=== PATIENT | male | born 1970 | race Two or more races ===

== ENCOUNTER 2020-08-14 08:23 | Outpatient (REF) | payer OTHER, SELFPAY ==
[2020-08-14 09:35] LABS: MANUAL DIFF FLAG NO
[2020-08-14 09:46] LABS: Basophils Absolute Auto 0.1 X10*3/uL (0.0-0.2); Basophils Percent Auto 0.9 % (0-2); Eosinophils Absolute Auto 0.4 X10*3/uL (0.0-0.4); Eosinophils Percent Auto 6.6 % (0-4); Glucose Urine UA NEG (NEG); Imm Gran Abs Auto 0.04 X10*3/uL (0.00-0.03); Imm Gran Pct Auto 0.7 % (0.0-0.4); Leukocyte Esterase Urine NEG (NEG); Lymphocytes Absolute Auto 1.4 X10*3/uL (1.2-4.9); Lymphocytes Percent Auto 24.7 % (20-40); Mean Corpuscular HGB Conc 34.1 g/dl (31.0-36.0); Mean Corpuscular Hemoglobin 29.1 pg (27.0-33.0); Mean Corpuscular Volume 85.4 fL (80-98); Mean Platelet Volume 10.3 fL (9.4-12.4); Monocytes Absolute Auto 0.5 X10*3/uL (0.1-1.2); Monocytes Percent Auto 9.3 % (2-11); Neutrophils Absolute Auto 3.2 X10*3/uL (2.0-8.3); Neutrophils Percent Auto 57.8 % (45-73); Nitrite Urine NEG (NEG); Platelet Count 215 X10*3/uL (160-400); Red Blood Count 5.15 X10*6/uL (4.60-5.80); Red Cell Distribution Width 12.7 % (11.0-16.0); Specific Gravity - Urine 1.025 (1.005-1.025); Urine Blood NEG (NEG); Urine Ketones NEG (NEG); Urine Protein NEG (NEG-TRACE); White Blood Count 5.6 X10*3/uL (4.8-10.8)
[2020-08-14 09:47] LABS: Appearance Urine CLEAR; Color Urine YELLOW
[2020-08-14 10:09] LABS: Alanine Aminotransferase 17 U/L (0-40); Albumin Level 4.7 g/dL (3.5-5.0); Alkaline Phosphatase 66 U/L (39-117); Anion Gap 14 (12-20); Aspartate Amino Transferase 16 U/L (5-37); Bilirubin Total 0.4 mg/dL (0.0-1.0); Blood Urea Nitrogen 23 mg/dL (9-16); Calcium 9.5 mg/dL (8.4-10.2); Carbon Dioxide 26 mmol/L (22-29); Chloride 105 mmol/L (96-108); Cholesterol 195 mg/dL; Estimated Glomerular Filt Rate > 60; Glucose Fasting 103 mg/dL (60-99); HDL Cholesterol 55 mg/dL; LDL Cholesterol Calculated 130 mg/dl; Potassium 4.9 mmol/L (3.3-5.1); Sodium 140 mmol/L (135-145); Total Protein 7.1 g/dL (6.5-8.0); Triglycerides 50 mg/dL
[2020-08-14 10:25] LABS: TSH reflex Free T4 0.46 uIU/mL (0.32-4.0)
[2020-08-14 10:57] LABS: Prostate Specific Antigen Scr 0.27 ng/mL (<0.05-4.0)
== END 2020-08-14 08:24 | disposition home or self-care (01) ==
LOC: HO.LAB 08:23
PROVIDERS: PCP Internal Medicine; Visit Provider Internal Medicine
DX: Z00.00 Encounter for general adult medical examination without abnormal findings (principal); Z12.5 Encounter for screening for malignant neoplasm of prostate; I10 Essential (primary) hypertension; L30.9 Dermatitis, unspecified; F17.200 Nicotine dependence, unspecified, uncomplicated; E66.9 Obesity, unspecified
CPT/HCPCS: 36415; 80053; 80061; 81003; 84153; 84443; 85025

== ENCOUNTER → 2020-08-19 09:28 | Outpatient (BNVA) | payer OTHER, SELFPAY | PROVIDERS: Visit Provider Nurse Practitioner ==

== ENCOUNTER 2022-05-14 11:34 | Emergency (ER) | payer BC, OTHER, SELFPAY ==
[2022-05-14 11:38] VITALS: BP 178/99; PULSE 76; RESP 18; TEMP 36.7; O2SAT 99; BMI 29.0
--- NOTE | 2022-05-14 11:43 | PC.NURSE ---
52 y/o M ROSE mcmahanye to L eye, educated on warm compresses and PO abx, given referral for opthamologist.
--- NOTE | 2022-05-14 11:43 | ED.GENADULT ---
HPI - General Adult General Chief complaint: Eye Problems Stated complaint: Swollen eye Time Seen by Provider: 05/14/22 11:42 Source: patient Mode of arrival: ambulatory Limitations: no limitations History of Present Illness HPI narrative: 33 yold male presents to the ED for left eye painful mass on left upper eyelid. Patient states this has been occurring for the past three weeks. patient denies any recent eye trauma, fever, chills, headache, eye pain, eye redness, or eye discharge Related Data Previous Rx's Medication Instructions Recorded lidocaine 5 % topical ointment 1 appl topical QID PRN pain 15 07/16/20 days #60 grams bisacodyl 5 mg tablet,delayed 10 mg PO BEDTIME 2 days #4 tabs 08/19/20 release (Dulcolax (bisacodyl)) omeprazole 20 mg capsule,delayed 20 mg PO .QAMAC 30 days #30 caps 08/19/20 release polyethylene glycol 3350 17 238 g PO ONCE 1 day #238 grams 08/19/20 gram/dose oral powder (Miralax) mometasone 0.1 % topical cream 1 appl topical DAILY PRN skin 09/22/20 irritation 10 days #45 grams sertraline 100 mg tablet 100 mg PO DAILY 30 days #30 tabs 05/13/21 lisinopril 20 mg tablet 20 mg PO DAILY #30 tabs 04/06/22 erythromycin 5 mg/gram (0.5 %) eye 0.5 inch ophthalmic (eye) QID 7 05/14/22 ointment days #3.5 grams Allergies Allergy/AdvReac Type Severity Reaction Status Date / Time No Known Allergies Allergy Verified 05/14/22 11:38 Review of Systems Review of Systems: left eye upper eyelid mass Yes all other systems are reviewed and are negative [facility] Past Medical History Medical History Benign essential hypertension Depression Dermatitis Obesity (BMI 30-39.9) Smoker Thoracic myofascial strain Surgical History No significant past surgical history Family History Family History Sister Breast cancer Brother Colon cancer, Onset Age: 62 Mother Heart disease Hypertension Father Diabetes Social History Social History Alcohol intake: current Alcohol intake frequency: 3 or more drinks per day Alcohol type: beer Patient Tobacco Use Status: Current everyday Tobacco user Tobacco use type: Cigarette Cigarette Packs Per Day: 1 Cigarettes Per Day: 20 Advance Directives: No Advance Directives Information Provided: No Physical Exam ED Vital Signs: Vital Signs - 24 hr 05/14/22 11:38 Temperature 98.0 F Pulse Rate 76 Respiratory Rate 18 Blood Pressure 178/99 H Pulse Oximetry 99 Oxygen Delivery Method Room Air BMI result Body Mass Index 29.0 Const General: cooperative, healthy appearing, comfortable, no acute distress, well developed, alert, awake and Physically active Orientation/consciousness: patient oriented x3 [facility] Head: Yes normal to inspection, Yes No palpable skull fracture present, Yes normocephalic, Yes atraumatic and No abrasion Eyes Other: visual acuity normal in both eyes Eyes/upper lids images: 1. positive for tender stye. no eye/conjuctive redness. no photophobia. no eye discharge, no ecchymosis, and no corneal abrasions/ulcer. no globe rupture Neck Neck: Yes normal visual inspection, Yes full ROM, Yes no lymphadenopathy, Yes no meningeal signs, Yes trachea midline, Yes supple, No anterior neck swelling and No tender Chest Chest palpation & inspection: normal inspection of the chest and normal palpation of entire chest wall Resp Effort & Inspection: normal respiratory effort and able to speak in complete sentences Cardio Jugular venous distension: no JVD Heart sounds: S1 normal heart sound present and S2 normal heart sound present GI Inspection: Yes normal to inspection and No abdominal wall ecchymosis Palpation (GI): Soft to palpation, not firm, nontender, no guarding and not rigid General: No CVA tenderness and Yes no CVA tenderness Back/Spine/Pelvis Back: no CVA tenderness, No CVA tenderness and No back tenderness Skin General skin exam: no rashes or lesions noted and elasticity normal Neuro General: patient oriented x3, gait normal, tone normal, moves all extremities, no meningeal signs and CN's II-XI intact bilaterally Cranial nerves: Yes CN's II-XII intact bilaterally Extrem General: Yes normal to inspection and Yes full ROM Psych Appearance: grossly normal, well kempt and not disheveled Course Course Course Narrative: LEft eye stye. Medical Decision Making Medical Decision Making [facility] Narrative: 52-year-old male presents to the ED for left eye stye. No other complaints. Physical exam does not indicate conjunctivitis, orbital cellulitis, globe rupture, corneal abrasion, glaucoma. Differential Diagnosis Differential Diagnoses: The differential diagnosis associated with the presentation includes (Conjunctivitis, orbital cellulitis, globe rupture, corneal abrasion, glaucoma) Admission/Observation No admission needed. Consult Healthcare Provider no consulting needed Lab Data no labs needed Radiology Impression Radiologist Impression: no imaging needed Prescription Management I considered prescription management with: Antibiotic (Erythromycin) Patient struck a warm compress 4 times a day and also using baby shampoo clean eyelids and morning. Patient recommended to follow up with eye doctor Discharge Plan Discharge Clinical Impression: Hordeol[employer] external Patient Disposition: Home, Self-Care Instructions: Steliza (ED) Additional Instructions: Tienes el orzuelo. Se recomienda compresas tibias en el p?rpado superior maik 4 veces al d?a lisa 15 minutos lisa al menos 2 semanas. masajear el p?rpado superior maik. VOLVER al servicio de urgencias o cualquier cambio en la visi?n, dolor ocular, fiebre, escalofr?os, dolor de willie, n?useas, v?mitos, secreci?n ocular o cualquier otro s?ntoma preocupante. Tendr? que hacer un seguimiento con un oftalm?logo. You will need to follow up with eye doctor. You can also use over the counter baby shampoo to wash left upper eyelids in the morning. you will be discharged with topical eye antibiotics. Prescriptions: New erythromycin 5 mg/gram (0.5 %) ointment 0.5 inch ophthalmic (eye) QID 7 Days Qty: 3.5 0RF No Action sertraline 100 mg tablet 100 mg PO DAILY 30 Days Qty: 30 3RF lisinopril 20 mg tablet 20 mg PO DAILY Qty: 30 1RF Rx Instructions: Patient needs an appointment for refills lidocaine 5 % ointment 1 appl topical QID PRN (Reason: pain) 15 Days Qty: 60 1RF mometasone 0.1 % cream 1 appl topical DAILY PRN (Reason: skin irritation) 10 Days Qty: 45 1RF bisacodyl [Dulcolax (bisacodyl)] 5 mg tablet,delayed release (DR/EC) 10 mg PO BEDTIME 2 Days Qty: 4 0RF polyethylene glycol 3350 [Miralax] 17 gram/dose powder 238 g PO ONCE 1 Days Qty: 238 0RF omeprazole 20 mg capsule,delayed release(DR/EC) 20 mg PO .QAMAC 30 Days Qty: 30 6RF Referrals: Geovnany Pena [Physician] - (left eye stye) Stand Alone Forms: Work/School Release Interventions: ED Discharge Assessment Last Done: 05/14/22 11:58 Discharge Date/Time: 05/14/22 12:00 Print Language: Serbian
== END 2022-05-14 12:00 | disposition home or self-care (01) ==
PROVIDERS: Emergency Provider Emergency Medicine; PCP Internal Medicine
DX: H00.016 Hordeolum externum left eye, unspecified eyelid (principal); H57.12 Ocular pain, left eye; F17.210 Nicotine dependence, cigarettes, uncomplicated; Z71.6 Tobacco abuse counseling; Z79.899 Other long term (current) drug therapy
CPT/HCPCS: 99282

== ENCOUNTER 2022-10-12 06:06 | Outpatient (REF) | payer BC, SELFPAY ==
[2022-10-12 06:17] LABS: MANUAL DIFF FLAG NO
[2022-10-12 07:08] LABS: Basophils Absolute Auto 0.1 X10*3/uL (0.0-0.2); Basophils Percent Auto 1.6 % (0-2); Eosinophils Absolute Auto 0.7 X10*3/uL (0.0-0.4); Eosinophils Percent Auto 11.4 % (0-4); Hematocrit 46.7 % (42.0-52.0); Hemoglobin 15.7 g/dl (14.0-18.0); Imm Gran Abs Auto 0.08 X10*3/uL (0.00-0.03); Imm Gran Pct Auto 1.3 % (0.0-0.4); Lymphocytes Absolute Auto 1.5 X10*3/uL (1.2-4.9); Lymphocytes Percent Auto 23.2 % (20-40); Mean Corpuscular HGB Conc 33.6 g/dl (31.0-36.0); Mean Corpuscular Hemoglobin 29.4 pg (27.0-33.0); Mean Corpuscular Volume 87.5 fL (80.0-98.0); Mean Platelet Volume 9.8 fL (9.4-12.4); Monocytes Absolute Auto 0.4 X10*3/uL (0.1-1.2); Monocytes Percent Auto 6.9 % (2-11); Neutrophils Absolute Auto 3.5 x10*3/uL (2.0-8.3); Neutrophils Percent Auto 55.6 % (45-73); Platelet Count 199 X10*3/uL (160-400); Red Blood Count 5.34 X10*6/uL (4.60-5.80); Red Cell Distribution Width 13.2 % (11.0-16.0); White Blood Count 6.3 X10*3/uL (4.8-10.8)
[2022-10-12 08:11] LABS: Appearance Urine Clear; Color Urine Yellow; Glucose Urine UA Negative (Negative); Leukocyte Esterase Urine Negative (Negative); Nitrite Urine Negative (Negative); PH 5.5 (5.0-9.0); Urine Blood Negative (Negative); Urine Ketones Negative (Negative); Urine Protein Negative (Neg-Trace)
[2022-10-12 11:10] LABS: Alanine Aminotransferase 36 U/L (0-40); Albumin Level 4.6 g/dL (3.5-5.0); Alkaline Phosphatase 51 U/L (39-117); Anion Gap 13 (12-20); Aspartate Amino Transferase 25 U/L (5-37); Bilirubin Total 0.7 mg/dL (0.0-1.0); Blood Urea Nitrogen 15 mg/dL (9-16); Calcium 9.7 mg/dL (8.4-10.2); Carbon Dioxide 26 mmol/L (22-29); Chloride 107 mmol/L (96-108); Cholesterol 219 mg/dL; Estimated Glomerular Filt Rate > 60; Glucose Fasting 102 mg/dL (60-99); HDL Cholesterol 69 mg/dL; LDL Cholesterol Calculated 136 mg/dl; Potassium 4.6 mmol/L (3.3-5.1); Sodium 141 mmol/L (135-145); Total Protein 7.5 g/dL (6.5-8.0); Triglycerides 70 mg/dL
[2022-10-12 11:27] LABS: Prostate Specific Antigen Scr 0.31 ng/mL (<0.05-4.0); TSH reflex Free T4 0.71 uIU/mL (0.32-4.0); Vitamin D 25-OH Total 26.8 ng/mL (>30)
== END 2022-10-12 06:07 | disposition home or self-care (01) ==
LOC: HO.LAB 06:06
PROVIDERS: PCP Internal Medicine; Visit Provider Internal Medicine
DX: Z00.00 Encounter for general adult medical examination without abnormal findings (principal); E55.9 Vitamin D deficiency, unspecified; I10 Essential (primary) hypertension; E78.00 Pure hypercholesterolemia, unspecified; R30.0 Dysuria; Z12.5 Encounter for screening for malignant neoplasm of prostate
CPT/HCPCS: 36415; 80053; 80061; 81003; 82306; 84153; 84443; 85025

== ENCOUNTER 2022-10-18 13:17 | Outpatient (AMB) | payer BC, SELFPAY ==
[2022-10-18 14:02] VITALS: BP 128/80; PULSE 76; O2SAT 96; BMI 29.3
--- NOTE | 2022-10-18 14:02 | A.OFFPC_ITS ---
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: No Accompanied by: Self / Same As Patient Allergies No Known Allergies Allergy (Verified 06/22/23 16:44) Medication List - Last Reconciled 06/24/23 by Bandar Martinez MD bisacodyl (Dulcolax (bisacodyl)) 10 mg (2 x 5 mg) PO BEDTIME 2 days cholecalciferol (vitamin D3) 50 mcg PO DAILY 90 days escitalopram oxalate 5 mg PO DAILY 30 days lisinopril 20 mg PO DAILY omeprazole 20 mg PO .QAMAC 30 days peg 3350-electrolytes 236-22.74-6.74 -5.86 gram (Golytely) 240 mL PO Q10M 1 day Tobacco use date assessed: 10/18/22 Dental Screening Dental Screen Date: 10/18/22 Did you have a dental visit in the last 12 months?: No Did you have a dental problem in the last 6 months where you did not have access to dental care?: No Was dental information given to patient?: Patient has dentist HPI annual PE HPI Details Patient comes in today for his annual physical examination States that he has been feeling depressed often for a few months now Feels okay otherwise He denies any headaches or dizziness Denies any chest pains, no SOB No nausea/vomiting, no abdominal pain No change in bowel habits noted Denies any acute urinary symptoms Had his follow up labs done last week - to discuss his results [facility] Medical History (Updated 06/24/23 @ 04:33 by Bandar Martinez MD) Vitamin D deficiency Pure hypercholesterolemia Overweight (BMI 25.0-29.9) Thoracic myofascial strain Smoker Dermatitis Depression Benign essential hypertension Surgical History No significant past surgical history Family History Sister Breast cancer Brother Colon cancer, Onset Age: 62 Mother Heart disease Hypertension Father Diabetes Social History Housing: Apartment Alcohol intake: current Alcohol intake frequency: 3 or more drinks per day Alcohol type: beer Patient Tobacco Use Status: Current everyday Tobacco user Tobacco use type: Cigarette Cigarette Packs Per Day: 1 Cigarettes Per Day: 20 e-Cigarette/Vaping Use: Never Used service: No Current occupational exposures/hazards: No Cognitive needs: No Hearing needs: No Vision needs: No Questionnaire PHQ-9 Over the last 2 weeks, how often have you been bothered by any of the following problems? 1. Little interest or pleasure in doing things: not at all 2. Feeling down, depressed, or hopeless: not at all 3. Trouble falling or staying asleep, or sleeping too much: not at all 4. Feeling tired or having little energy: not at all 5. Poor appetite or overeating: not at all 6. Feeling bad about yourself - or that you are a failure or have let yourself or your family down: not at all 7. Trouble concentrating on things, such as reading the newspaper or watching television: not at all 8. Moving or speaking so slowly that other people could have noticed. Or the opposite - being so fidgety or restless that you have been moving around a lot more than usual: not at all 9. Thoughts that you would be better off or of hurting yourself in some way: not at all Total score: 0 Depression Screening Interpretation: Negative 69409 - PHQ-9 Billing: Yes Source: Developed by Drs. Herson Ortega, Alice Ritter, Jorge Luis Pedro and colleagues, with an educational martin from [employer]. Thrive Questionnaire Date Thrive assessed: 10/18/22 I am a: Patient What is your living situation today?: I have a steady place to live Within the past 12 months, did the food you bought not last and you didn't have the money to get more?: Never true Within the past 12 months, did you worry whether your food would run out before you got money to buy more?: Never true Do you have trouble paying for medicines?: No Do you have trouble getting transportation to medical appointments?: No Do you have trouble paying your heating and electricity bill?: No Do you have trouble taking care of your child, family member or friend?: No Do you have trouble with day-to-day activities such as bathing, preparing meals, shopping, managing finances, etc.?: No Are you currently unemployed and looking for a job?: No Are you interested in more education?: No Currently or been in a relationship where the following occur: no concerns reported AUDIT C Alcohol Use Questionnaire (AUDIT-C) 1. How often do you have a drink containing alcohol?: 2-3 times a week 2. How many drinks containing alcohol do you have on a typical day when you are drinking?: 3 or 4 3. How often do you have six or more drinks on one occasion?: Never Total Score: 4 Score Reviewed/Action Taken: Yes CAMACHO-7 AMB Questionnaire CAMACHO-7 Date CAMACHO - 7 assessed: 10/18/22 Feeling nervous, anxious, or on edge: 0 = Not at all Not being able to stop or control worryin = Not at all Worrying too much about different things: 0 = Not at all Trouble relaxin = Not at all Being so restless that it is hard to sit still: 0 = Not at all Becoming easily annoyed or irritable: 0 = Not at all Feeling afraid as if something awful might happen: 0 = Not at all Total CAMACHO-7 score (0-4 normal; 5-9 mild; 10-14 moderate; 15-21 severe): 0 Source: Developed by Drs. Herson Ortega, Alice Ritter, Jorge Luis Pedro and colleagues, with an educational martin from [employer]. Review of Systems Const Denies chills, Reports difficulty sleeping, Denies fatigue, Denies fever(s), Denies headache(s), Denies malaise and Denies weakness Eyes Denies blurry vision, Denies change in vision, Denies irritation and Denies itchy eyes ENT Denies dysphagia, Denies dizziness, Denies otalgia, Denies headache(s), Denies nasal congestion, Denies neck pain, Denies odynophagia and Denies sore throat Card Denies chest pain, Denies rapid heart rate, Denies irregular heart rhythm, Denies palpitations and Denies dyspnea Resp Denies chest congestion, Denies cough, Denies dyspnea and Denies wheezing GI Denies abdominal pain, Denies bloating, Denies constipation, Denies dysphagia, Denies heartburn, Denies diarrhea, Denies nausea, Denies odynophagia and Denies vomiting Denies hematuria, Denies difficulty urinating, Denies dysuria, Denies urinary frequency and Denies urinary urgency Musc Denies back pain, Denies arthralgias, Denies joint swelling, Denies muscle weakness and Denies neck pain Skin/Breast Denies change in pigmentation, Denies lesions, Denies rash and Denies unusual bruising Neuro Denies dizziness, Denies headache(s), Denies paresthesias and Denies weakness Psych Reports depression Endo Denies fatigue and Denies palpitations Aller/Immun Denies itchy eyes and Denies wheezing Physical exam (Primary Care) Vital Signs: Last Vital Signs Pulse 76 10/18/22 14:02 BP 128/80 10/18/22 14:02 Pulse Ox 96 10/18/22 14:02 Oxygen Delivery Method Room Air 10/18/22 14:02 BMI result Body Mass Index 29.3 Tobacco/Smoking Status: Tobacco use Status Tobacco use date assessed 10/18/22 10/18/22 14:08 Patient Tobacco Use Status Current everyday Tobacco 10/18/22 14:08 Tobacco use type Cigarette 10/18/22 14:08 e-Cigarette/Vaping Use Never Used 10/18/22 14:08 PHQ-9: PHQ-9 Score PHQ-9: Total score 0 10/18/22 14:58 Depression Screening Interpretation: Negative Thrive Assessment: Date of Thrive Assessment Date Thrive assessed 10/18/22 10/18/22 14:08 Currently or been in a relationship where the following occur: no concerns reported Const General: no acute distress, alert and awake Orientation/consciousness: patient oriented x3 HENMT Head: Yes normocephalic and Yes atraumatic Ears: external ears normal, TM's normal bilaterally and EAC's normal General nose exam: No nasal discharge present Face and sinus: Yes normal facial exam and Yes sinuses nontender Teeth and gingiva: dentition normal Throat: Yes posterior oropharynx normal and Yes tonsils normal (no TP congestion) Eyes Eyelids: Yes eyelids normal Conjunctivae: conjunctivae normal Pupils: Equal, round and reactive pupils present EOM: EOMs intact bilaterally Neck Neck: Yes no lymphadenopathy and Yes supple Thyroid: Thyroid normal Resp Auscultation: clear to auscultation bilaterally, no rales and no wheezes Cardio Rate: regular rate Rhythm: regular rhythm Heart sounds: no murmurs GI Palpation (GI): Soft to palpation, nontender and No hepatosplenomegaly present Auscultation: normal bowel sounds General: Yes no CVA tenderness Back/Spine/Pelvis Back: no CVA tenderness Thoracic/Lumbar Spine: thoracic and lumbar spine normal to inspection Skin Lesions: no lesions Rashes: no rashes Neuro General: patient oriented x3, moves all extremities, no focal motor deficits and CN's II-XI intact bilaterally Cranial nerves: Yes Equal, round and reactive pupils present Cognition (Neuro): normal cognition Gait exam (Neuro): Normal gait present Extrem General: Yes no clubbing, cyanosis or edema Results Reviewed Results Reviewed: Laboratory Tests 08/14/20 08/14/20 08/14/20 08:49 08:49 08:49 WBC 5.6 Hgb 15.0 Hct 44.0 Plt Count 215 Sodium 140 Potassium 4.9 Creatinine 1.00 Estimated GFR > 60 Fasting Glucose 103 H Calcium 9.5 AST 16 ALT 17 Triglycerides 50 Cholesterol 195 LDL Cholesterol, Calc 130 HDL Cholesterol 55 PSA Screen 0.27 25-OH Vitamin D Total TSH 0.46 Ur Specific [place] 1.025 Urine Protein NEG Urine Glucose (UA) NEG Urine Blood NEG 10/12/22 10/12/22 10/12/22 06:10 06:15 06:15 WBC 6.3 Hgb 15.7 Hct 46.7 Plt Count 199 Sodium 141 Potassium 4.6 Creatinine 0.90 Estimated GFR > 60 Fasting Glucose 102 H Calcium 9.7 AST 25 ALT 36 Triglycerides 70 Cholesterol 219 LDL Cholesterol, Calc 136 HDL Cholesterol 69 PSA Screen 0.31 25-OH Vitamin D Total 26.8 TSH 0.71 Ur Specific [place] 1.020 Urine Protein Negative Urine Glucose (UA) Negative Urine Blood Negative Assessment and Plan Assessment & Plan (1) Annual physical exam: Code(s): Z00.00 - Encounter for general adult medical examination without abnormal findings Plan: Results of his labs done last week reviewed and discussed with patient Patient is also due for his colon cancer screening (2) Benign essential hypertension: Code(s): I10 - Essential (primary) hypertension Plan: Reinforced low sodium diet - goal is systolic BP of at least 120 to 130 mm or less Continue Lisinopril 20 mg QD (3) Pure hypercholesterolemia: Code(s): E78.00 - Pure hypercholesterolemia, unspecified Plan: Results of his labs done last week reviewed and discussed with patient Reinforced low cholesterol diet Will recheck his labs and fasting lipids in 4 months for follow up (4) Vitamin D deficiency: Code(s): E55.9 - Vitamin D deficiency, unspecified Plan: He is advised that his Vitamin D level was low on his recent labs done a week ago Will start him on Vitamin D3 2000 units QD (5) Erectile dysfunction: Code(s): N52.9 - Male erectile dysfunction, unspecified Qualifiers: Erectile dysfunction type: unspecified Qualified Code(s): N52.9 - Male erectile dysfunction, unspecified Plan: Advised that this is most likely multifactorial, including due to his hypertension, cholesterol as well as his mood disorder Can consider starting him on a PDE5 inhibitor at any time if he wants to (like Sildenafil) - states that he will call for the Rx if he decides to start taking them (6) Depression: Code(s): F32.9 - Major depressive disorder, single episode, unspecified Qualifiers: Depression Type: unspecified Qualified Code(s): F32.9 - Major depressive disorder, single episode, unspecified Plan: Will start him on Escitalopram 5 mg QD Also offered to refer patient to psychiatry but states that he would like to hold off on this for now and he will call for referral when he wants to do so (7) Alcohol use: Code(s): Z78.9 - Other specified health status Plan: Patient is again counseled on his drinking - states that he mostly drinks a 6- pack on weekends to help him relax and does NOT drink at all during the week (8) Smoker: Code(s): F17.200 - Nicotine dependence, unspecified, uncomplicated Plan: Counseled again on smoking cessation (9) Overweight (BMI 25.0-29.9): Code(s): E66.3 - Overweight Plan: Reinforced diet/exercise as tolerated/lose weight (10) Colon cancer screening: Code(s): Z12.11 - Encounter for screening for malignant neoplasm of colon Plan: Will refer him to GI for screening colonoscopy Plan Follow up in 4 months Orders: Orders Lipid Panel 4 Months E78.00 - Pure hypercholesterolemia, unspecified Comprehensive [place]. Panel Fast 4 Months E78.00 - Pure hypercholesterolemia, unspecified Vitamin D 25-OH Total 4 Months E55.9 - Vitamin D deficiency, unspecified Referrals Gastroenterology Referral Z12.11 - Encounter for screening for malignant neoplasm of colon Medications: New escitalopram oxalate 5 mg PO DAILY 30 tabs 3RF 30 days F32.9 - Major depressive disorder, single episode, unspecified cholecalciferol (vitamin D3) 50 mcg PO DAILY 90 caps 3RF 90 days E55.9 - Vitamin D deficiency, unspecified Coding Level of Care Code Est Pt Prev Care 40-64y([id number]) Diagnoses Annual physical exam Z00.00 Benign essential hypertension I10 Pure hypercholesterolemia E78.00 Vitamin D deficiency E55.9 Erectile dysfunction, unspecified erectile dysfunction type N52.9 Erectile dysfunction type: unspecified Depression, unspecified depression type F32.9 Depression Type: unspecified Alcohol use Z78.9 Smoker F17.200 Overweight (BMI 25.0-29.9) E66.3 Colon cancer screening Z12.11
== END 2022-10-18 15:03 | disposition home or self-care (01) ==
PROVIDERS: PCP Internal Medicine; Visit Provider Internal Medicine
DX: Z00.00 Encounter for general adult medical examination without abnormal findings (principal); I10 Essential (primary) hypertension; E78.00 Pure hypercholesterolemia, unspecified; E55.9 Vitamin D deficiency, unspecified; N52.9 Male erectile dysfunction, unspecified; F32.9 Major depressive disorder, single episode, unspecified; Z78.9 Other specified health status; F17.200 Nicotine dependence, unspecified, uncomplicated; E66.3 Overweight; Z12.11 Encounter for screening for malignant neoplasm of colon
CPT/HCPCS: 99499

== ENCOUNTER 2022-12-14 15:06 | Outpatient (AMB) | payer BC, SELFPAY ==
--- NOTE | 2022-12-14 15:08 | A.OFFVIS_ITS ---
Intake Vital Signs 12/14/22 15:09 Height 5 ft 7 in Weight 183 lb BMI 28.7 BP 152/85 H Blood Pressure Location Rt brachial Position Sitting Pulse 71 Intake Visit Reasons: colonoscopy screening Intake Note: Patient presents to in office visit today for colonoscopy screening. CC: Patient reports doing welll today and denies having any GI issues today. 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 He is referred by Dr. Martinez of [facility] primary care. PMX Benign essential hypertension (Acute) Colon cancer screening (Acute) Depression (Acute) Dermatitis (Acute) Obesity (BMI 30-39.9) (Acute) Smoker (Acute) Thoracic myofascial strain (Acute) * SURGICAL HISTORY PT denies * ALLERGIES: NKDA * [employer] LABS: Laboratory Tests 10/12/22 10/12/22 06:15 06:15 WBC 6.3 Hgb 15.7 Hct 46.7 Plt Count 199 Estimated GFR > 60 Total Bilirubin 0.7 AST 25 ALT 36 Alkaline Phosphata se 51 TSH 0.71 TODAY'S VISIT [place] O[place] Epstein This will be his first colonoscopy. He denies any bowel or upper GI problems. 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 He denies any cardiac or respiratory problems. No ID problems. His brother had CRC in his 60's. [facility] Medical History Benign essential hypertension Depression Dermatitis Obesity (BMI 30-39.9) Overweight (BMI 25.0-29.9) Smoker Thoracic myofascial strain Surgical History No significant past surgical history Family History Sister Breast cancer Brother Colon cancer, Onset Age: 62 Mother Heart disease Hypertension Father Diabetes Social History Housing: Apartment Alcohol intake: current Alcohol intake frequency: 3 or more drinks per day Alcohol type: beer Patient Tobacco Use Status: Current everyday Tobacco user Tobacco use type: Cigarette Cigarette Packs Per Day: 1 Cigarettes Per Day: 20 e-Cigarette/Vaping Use: Never Used service: No Current occupational exposures/hazards: No Cognitive needs: No Hearing needs: No Vision needs: No Review of Systems Const Denies fatigue, Denies fever(s), Denies night sweats, Denies poor appetite and Denies weight loss ENT Reports Normal hearing present, Denies dental pain, Denies dysphagia, Denies hearing loss, Denies mouth pain, Denies odynophagia, Denies throat swelling, Denies tongue swelling and Reports other (Dentition adequate) Card Reports no additional complaints Resp Reports no additional complaints GI Denies abdominal pain, Denies melena, Denies bloating, Denies hematochezia, Denies constipation, Denies GI cramping, Denies dysphagia, Denies excessive flatus, Denies early satiety, Denies heartburn, Denies diarrhea, Denies nausea, Denies odynophagia, Denies vomiting and Denies hematemesis Skin/Breast Denies pruritus, Denies lesions, Denies rash and Denies jaundice Neuro Reports Normal hearing present and Denies Abnormal speech present Endo Denies fatigue Aller/Immun Denies throat swelling and Denies tongue swelling Physical Exam Vital Signs: Last Vital Signs Pulse 71 12/14/22 15:09 BP 152/85 H 12/14/22 15:09 BMI result Body Mass Index 28.7 Const General: cooperative, no acute distress, well developed and well groomed Nutritional Appearance: average body habitus and well nourished Orientation/consciousness: oriented to person, oriented to place and oriented to time Limitations: language barrier HEENT Head: Yes normocephalic and Yes atraumatic Eyes General: appearance normal, both eyes and all related structures Pupils: Equal, round and reactive pupils present Neck Neck: Yes normal visual inspection and Yes no lymphadenopathy Thyroid: Thyroid normal Resp Effort & Inspection: normal respiratory effort and able to speak in complete sentences Auscultation: clear to auscultation bilaterally Cardio Rate: regular rate Rhythm: regular rhythm Heart sounds: Normal, physiologic split S2 sound present Peripheral pulses: radial pulses present and posterior tibial pulses present GI Inspection: No distended and No Abdominal panniculus present Palpation (GI): Soft to palpation, nontender, no guarding, not rigid and No hepatosplenomegaly present Percussion: Yes normal to percussion Auscultation: normal bowel sounds Rectal Exam - Male: Yes deferred Skin General skin exam: no rashes or lesions noted, turgor normal, skin not dry, no jaundice, No spider nevi and no striae Rashes: no rashes Nails: normal Neuro General: oriented to person, oriented to place and oriented to time Cranial nerves: Yes Equal, round and reactive pupils present and Yes Normal hearing present Speech: No Abnormal speech present Extrem General: Yes normal to inspection, No clubbing, No cyanosis and No edema Psych Appearance: grossly normal and well kempt Mental Status: mental status grossly normal Speech and movement: Normal speech and movement present Affect: normal affect Attitude: cooperative Thought process: Normal thought process present and not confabulating Thought content: Normal thought content present Insight: Fair insight present (Psych) Judgement: Fair judgement present (Psych) Assessment & Plan Assessment & Plan (1) Family history of colon cancer: Comment: His brother had CRC but he does not know at what age, his sister also recently had CRC at age 68 had throat cancer but he does not speak to these family member much. Code(s): Z80.0 - Family history of malignant neoplasm of digestive organs Plan: [place] [facility] Live This will be his first colonoscopy. He denies any bowel or upper GI problems. 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 He denies any cardiac or respiratory problems. No ID problems. His brother had CRC in his 60's. (2) Pre-op examination: Code(s): Z01.818 - Encounter for other preprocedural examination (3) Alcohol use: Code(s): Z78.9 - Other specified health status Orders: Orders Colonoscopy - GI Use Only Today Z01.818 - Encounter for other preprocedural examination, Z80.0 - Family history of malignant neoplasm of digestive organs Medications: New peg 3350-electrolytes 236-22.74-6.74 -5.86 gram (Golytely) until fecal effluent is clear; do not exceed a total volume of 2,000 mL 240 mL PO Q10M 1 day 4,000 mL 0RF Z12.11 - Encounter for screening for malignant neoplasm of colon Coding Level of Care Code New Pt Level 3 (31148) Diagnoses Family history of colon cancer Z80.0 Pre-op examination Z01.818 Alcohol use Z78.9
[2022-12-14 15:09] VITALS: BP 152/85; PULSE 71; BMI 28.7
== END 2022-12-14 16:16 | disposition home or self-care (01) ==
PROVIDERS: PCP Internal Medicine; Visit Provider Nurse Practitioner
DX: Z01.818 Encounter for other preprocedural examination (principal); Z12.11 Encounter for screening for malignant neoplasm of colon; Z80.0 Family history of malignant neoplasm of digestive organs
CPT/HCPCS: S0285

== ENCOUNTER → 2022-12-14 15:06 | Outpatient (BNVA) | payer BC, SELFPAY | PROVIDERS: PCP Internal Medicine; Visit Provider Nurse Practitioner ==

== ENCOUNTER 2023-02-14 06:19 | Outpatient (REF) | payer BC, SELFPAY ==
[2023-02-14 07:24] LABS: Alanine Aminotransferase 19 U/L (0-40); Albumin Level 4.7 g/dL (3.5-5.0); Alkaline Phosphatase 53 U/L (39-117); Anion Gap 14 (12-20); Aspartate Amino Transferase 20 U/L (5-37); Bilirubin Total 0.6 mg/dL (0.0-1.0); Blood Urea Nitrogen 14 mg/dL (9-16); Calcium 10.4 mg/dL (8.4-10.2); Carbon Dioxide 25 mmol/L (22-29); Chloride 106 mmol/L (96-108); Cholesterol 211 mg/dL (<200); Estimated Glomerular Filt Rate > 60; Glucose Fasting 100 mg/dL (60-99); HDL Cholesterol 72 mg/dL (>40); LDL Cholesterol Calculated 126 mg/dL (<100); Potassium 4.9 mmol/L (3.3-5.1); Sodium 140 mmol/L (135-145); Total Protein 7.7 g/dL (6.5-8.0); Triglycerides 68 mg/dL (<150)
[2023-02-14 07:31] LABS: Vitamin D 25-OH Total 32.6 ng/mL (>30)
== END 2023-02-14 06:20 | disposition home or self-care (01) ==
LOC: HO.LAB 06:19
PROVIDERS: PCP Internal Medicine; Visit Provider Internal Medicine
DX: E78.00 Pure hypercholesterolemia, unspecified (principal); E55.9 Vitamin D deficiency, unspecified
CPT/HCPCS: 36415; 80053; 80061; 82306

== ENCOUNTER 2023-02-19 16:13 | Outpatient (AMB) | payer BC, OTHER, SELFPAY ==
[2023-02-19 16:20] VITALS: BP 128/86; PULSE 91; O2SAT 98; BMI 28.7
--- NOTE | 2023-02-19 16:20 | A.OFFPC_ITS ---
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 Accompanied by: Self / Same As Patient Allergies No Known Allergies Allergy (Verified 02/19/23 17:07) Medication List - Last Reconciled 02/19/23 by Bandar Martinez MD bisacodyl (Dulcolax (bisacodyl)) 10 mg (2 x 5 mg) PO BEDTIME 2 days cholecalciferol (vitamin D3) 50 mcg PO DAILY 90 days escitalopram oxalate 5 mg PO DAILY 30 days lisinopril 20 mg PO DAILY omeprazole 20 mg PO .QAMAC 30 days peg 3350-electrolytes 236-22.74-6.74 -5.86 gram (Golytely) 240 mL PO Q10M 1 day polyethylene glycol 3350 (Miralax) 238 grams PO ONCE 1 day Tobacco use date assessed: 02/19/23 Dental Screening Dental Screen Date: 02/19/23 Did you have a dental visit in the last 12 months?: No Did you have a dental problem in the last 6 months where you did not have access to dental care?: No Was dental information given to patient?: No HPI F/Up HTN, hyperlipidemia, depression HPI Details Patient comes in today for his follow up visit States that he feels okay He denies any headaches or dizziness Denies any chest pains, no SOB No nausea/vomiting, no abdominal pain No change in bowel habits noted Had his follow up labs done last week - to discuss his results Admits that he has not been taking the Escitalopram 5 mg that he was started on a few months ago for his depression/mood disorder - states that he will start taking it if he feels his depression getting worse as he has the Rx at home but thinks that he is doing okay so far without it at this time States that he wakes up around 3 AM every week day to get ready to go to work as his work starts as early as 6 o'clock in the morning and 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 - states that staying busy helps keep him occupied and his mood controlled He usually gets home from work around 7 pm and will eat a light dinner and often times goes straight to bed from exhaustion and wakes up around 3 am - denies any nocturia Admits that he still drinks about a six-pack on the weekends but otherwise, does not drink during the week He was seen by GI for initial intake for his colonoscopy but he is still currently waiting to have his procedure scheduled - was told that it can take anywhere from 2 to 8 months to get his procedure scheduled due to backlogs [facility] Medical History (Updated 02/19/23 @ 17:30 by Bandar Martinez MD) Pure hypercholesterolemia Overweight (BMI 25.0-29.9) Thoracic myofascial strain Smoker Dermatitis Depression Benign essential hypertension Surgical History No significant past surgical history Family History Sister Breast cancer Brother Colon cancer, Onset Age: 62 Mother Heart disease Hypertension Father Diabetes Social History (Updated 02/19/23 @ 17:28 by Bandar Martinez MD) Housing: Apartment Alcohol intake: current Alcohol intake frequency: 3 or more drinks per day Alcohol type: beer Patient Tobacco Use Status: Current everyday Tobacco user Tobacco use type: Cigarette Cigarette Packs Per Day: 1 Cigarettes Per Day: 20 e-Cigarette/Vaping Use: Never Used service: No Current occupational exposures/hazards: No Cognitive needs: No Hearing needs: No Vision needs: No Questionnaire PHQ-9 Over the last 2 weeks, how often have you been bothered by any of the following problems? 1. Little interest or pleasure in doing things: not at all 2. Feeling down, depressed, or hopeless: not at all 3. Trouble falling or staying asleep, or sleeping too much: not at all 4. Feeling tired or having little energy: not at all 5. Poor appetite or overeating: not at all 6. Feeling bad about yourself - or that you are a failure or have let yourself or your family down: not at all 7. Trouble concentrating on things, such as reading the newspaper or watching television: not at all 8. Moving or speaking so slowly that other people could have noticed. Or the opposite - being so fidgety or restless that you have been moving around a lot more than usual: not at all 9. Thoughts that you would be better off or of hurting yourself in some way: not at all Total score: 0 Depression Screening Interpretation: Negative Depression Screening Done: Yes 78249 - PHQ-9 Billing: Yes Source: Developed by Drs. Herson Ortega, Alice Ritter, Jorge Luis Pedro and colleagues, with an educational martin from [employer] Thrive Questionnaire Date Thrive assessed: 02/19/23 I am a: Patient What is your living situation today?: I have a steady place to live Within the past 12 months, did the food you bought not last and you didn't have the money to get more?: Never true Within the past 12 months, did you worry whether your food would run out before you got money to buy more?: Never true Do you have trouble paying for medicines?: No Do you have trouble getting transportation to medical appointments?: No Do you have trouble paying your heating and electricity bill?: No Do you have trouble taking care of your child, family member or friend?: No Do you have trouble with day-to-day activities such as bathing, preparing meals, shopping, managing finances, etc.?: No Are you currently unemployed and looking for a job?: No Are you interested in more education?: No Please select the resources that you would like help with: None Currently or been in a relationship where the following occur: no concerns reported AUDIT C Alcohol Use Questionnaire (AUDIT-C) 1. How often do you have a drink containing alcohol?: 2-3 times a week 2. How many drinks containing alcohol do you have on a typical day when you are drinking?: 3 or 4 3. How often do you have six or more drinks on one occasion?: Never Total Score: 4 Score Reviewed/Action Taken: Yes CAMACHO-7 AMB Questionnaire CAMACHO-7 Date CAMACHO - 7 assessed: 02/19/23 Feeling nervous, anxious, or on edge: 0 = Not at all Not being able to stop or control worryin = Not at all Worrying too much about different things: 0 = Not at all Trouble relaxin = Not at all Being so restless that it is hard to sit still: 0 = Not at all Becoming easily annoyed or irritable: 0 = Not at all Feeling afraid as if something awful might happen: 0 = Not at all Total CAMACHO-7 score (0-4 normal; 5-9 mild; 10-14 moderate; 15-21 severe): 0 Source: Developed by Drs. Herson Ortega, Alice Ritter, Jorge Luis Pedro and colleagues, with an educational martin from [employer]. Review of Systems Const Denies chills, Denies difficulty sleeping, Denies fatigue, Denies fever(s) and Denies headache(s) ENT Denies dysphagia, Denies dizziness, Denies otalgia, Denies headache(s), Denies neck pain, Denies odynophagia and Denies sore throat Card Denies chest pain, Denies palpitations and Denies dyspnea Resp Denies cough and Denies dyspnea GI Denies abdominal pain, Denies constipation, Denies dysphagia, Denies heartburn, Denies diarrhea, Denies nausea, Denies odynophagia and Denies vomiting Denies dysuria, Denies nocturia and Denies urinary frequency Musc Denies back pain and Denies neck pain Skin/Breast Denies rash Neuro Denies dizziness and Denies headache(s) Psych Reports depression (at times) Endo Denies fatigue and Denies palpitations Physical exam (Primary Care) Vital Signs: Last Vital Signs Pulse 91 02/19/23 16:20 BP 128/86 02/19/23 16:20 Pulse Ox 98 02/19/23 16:20 Oxygen Delivery Method Room Air 02/19/23 16:20 BMI result Body Mass Index 28.7 Tobacco/Smoking Status: Tobacco use Status Tobacco use date assessed 02/19/23 02/19/23 16:22 Patient Tobacco Use Status Current everyday Tobacco 02/19/23 16:22 Tobacco use type Cigarette 02/19/23 16:22 e-Cigarette/Vaping Use Never Used 02/19/23 16:22 PHQ-9: PHQ-9 Score PHQ-9: Total score 0 02/19/23 16:31 Depression Screening Interpretation: Negative Thrive Assessment: Date of Thrive Assessment Date Thrive assessed 02/19/23 02/19/23 16:22 Currently or been in a relationship where the following occur: no concerns reported Const General: no acute distress and alert HENMT Ears: TM's normal bilaterally and EAC's normal Throat: Yes posterior oropharynx normal and Yes tonsils normal (no TP congestion) Neck Neck: Yes no lymphadenopathy and Yes supple Resp Auscultation: clear to auscultation bilaterally, no rales and no wheezes Cardio Rate: regular rate Rhythm: regular rhythm Heart sounds: no murmurs GI Palpation (GI): Soft to palpation, nontender and No hepatosplenomegaly present Skin General skin exam: no rashes or lesions noted Extrem General: Yes no clubbing, cyanosis or edema Results Reviewed Results Reviewed: Laboratory Tests 02/14/23 06:27 Sodium 140 Potassium 4.9 Creatinine 0.90 Estimated GFR > 60 Fasting Glucose 100 H Calcium 10.4 H D AST 20 ALT 19 Triglycerides 68 Cholesterol 211 H LDL Cholesterol, Calc 126 H HDL Cholesterol 72 25-OH Vitamin D Total 32.6 Assessment and Plan Assessment & Plan (1) Benign essential hypertension: Code(s): I10 - Essential (primary) hypertension Plan: Reinforced low sodium diet - goal is systolic BP of at least 120 to 130 mm or less Continue Lisinopril 20 mg QD (2) Pure hypercholesterolemia: Code(s): E78.00 - Pure hypercholesterolemia, unspecified Plan: Results of his labs done last week reviewed and discussed with patient - advised that his LDL and total cholesterol levels have improved slightly from previous Reinforced low cholesterol diet Will recheck his labs and fasting lipids in 4 months for follow up (3) Erectile dysfunction: Code(s): N52.9 - Male erectile dysfunction, unspecified Qualifiers: Erectile dysfunction type: unspecified Qualified Code(s): N52.9 - Male erectile dysfunction, unspecified Plan: Advised that this is most likely multifactorial, including due to his hypertension, cholesterol as well as his mood disorder Can consider starting him on a PDE5 inhibitor at any time if he wants to (like Sildenafil) - states that he can just call for the Rx when he needs them (4) Depression: Code(s): F32.9 - Major depressive disorder, single episode, unspecified Qualifiers: Depression Type: unspecified Qualified Code(s): F32.9 - Major depressive disorder, single episode, unspecified Plan: Was on Sertraline 100 mg QD in the past but ran out of his Rx last year Was started on Escitalopram 5 mg QD at his last visit but he has not yet started on the medication; states that he has the Rx at home and will begin taking it if he starts feeling more depressed but thinks he is doing okay for now so he would like to hold off taking the medication at this time Was seeing a therapist at [facility] before but has not been seen for follow up in a while (5) Alcohol use: Code(s): Z78.9 - Other specified health status Plan: Patient is also counseled on his drinking - states that he mostly drinks about a 6-pack on weekends to help him relax and does NOT drink at all during the week (6) Smoker: Code(s): F17.200 - Nicotine dependence, unspecified, uncomplicated Plan: Counseled again on smoking cessation (7) Overweight (BMI 25.0-29.9): Code(s): E66.3 - Overweight Plan: Reinforced diet/exercise as tolerated/lose weight Plan Follow up in 4 months Orders: Orders Lipid Panel 4 Months E78.00 - Pure hypercholesterolemia, unspecified Vitamin B12 and Folate 4 Months E53.8 - Deficiency of other specified B group vitamins, Z78.9 - Other specified health status Comprehensive [place]. Panel Fast 4 Months E78.00 - Pure hypercholesterolemia, unspecified Vitamin B1 4 Months Z78.9 - Other specified health status Hemoglobin A1c 4 Months R73.01 - Impaired fasting glucose Coding Level of Care Code Est Pt Level 4 (76107) Diagnoses Benign essential hypertension I10 Pure hypercholesterolemia E78.00 Erectile dysfunction, unspecified erectile dysfunction type N52.9 Erectile dysfunction type: unspecified Depression, unspecified depression type F32.9 Depression Type: unspecified Alcohol use Z78.9 Smoker F17.200 Overweight (BMI 25.0-29.9) E66.3
== END 2023-02-19 17:14 | disposition home or self-care (01) ==
LOC: HO.HMGH 16:13
PROVIDERS: PCP Internal Medicine; Visit Provider Internal Medicine
DX: I10 Essential (primary) hypertension (principal); E78.00 Pure hypercholesterolemia, unspecified; N52.9 Male erectile dysfunction, unspecified; F32.9 Major depressive disorder, single episode, unspecified; Z78.9 Other specified health status; F17.210 Nicotine dependence, cigarettes, uncomplicated; E66.3 Overweight
CPT/HCPCS: 99214

== ENCOUNTER 2023-06-11 06:00 | Outpatient (REF) | payer BC, OTHER, SELFPAY ==
[2023-06-11 08:10] LABS: Estimated Average Glucose 97 mg/dL
[2023-06-11 08:31] LABS: Alanine Aminotransferase 17 U/L (0-40); Albumin Level 4.3 g/dL (3.5-5.0); Alkaline Phosphatase 53 U/L (39-117); Anion Gap 11 (12-20); Aspartate Amino Transferase 17 U/L (5-37); Bilirubin Total 0.5 mg/dL (0.0-1.0); Blood Urea Nitrogen 15 mg/dL (9-16); Calcium 9.4 mg/dL (8.4-10.2); Carbon Dioxide 27 mmol/L (22-29); Chloride 105 mmol/L (96-108); Cholesterol 218 mg/dL (<200); Estimated Glomerular Filt Rate > 60; Glucose Fasting 98 mg/dL (60-99); HDL Cholesterol 75 mg/dL (>40); LDL Cholesterol Calculated 124 mg/dL (<100); Potassium 4.3 mmol/L (3.3-5.1); Sodium 139 mmol/L (135-145); Total Protein 7.1 g/dL (6.5-8.0); Triglycerides 98 mg/dL (<150)
[2023-06-11 09:05] LABS: Folate 9.9 ng/mL (> or = 4.0); Vitamin B12 437 pg/mL (200-900)
[2023-06-16 17:24] LABS: Vitamin B1 12 nmol/L (8-30)
== END 2023-06-11 06:01 | disposition home or self-care (01) ==
LOC: HO.LAB 06:00
PROVIDERS: PCP Internal Medicine; Visit Provider Internal Medicine
DX: E78.00 Pure hypercholesterolemia, unspecified (principal); E53.8 Deficiency of other specified B group vitamins; R73.01 Impaired fasting glucose; Z78.9 Other specified health status
CPT/HCPCS: 36415; 80053; 80061; 82607; 82746; 83036; 84425

== ENCOUNTER 2023-06-22 16:46 | Outpatient (AMB) | payer BC, OTHER, SELFPAY ==
[2023-06-22 16:14] VITALS: BP 144/82; PULSE 80; O2SAT 99; BMI 28.7
--- NOTE | 2023-06-22 16:14 | A.OFFPC_ITS ---
Vital Signs 06/22/23 16:14 Height 5 ft 7 in Weight 183 lb 6 oz BMI 28.7 BP 144/82 H Blood Pressure Location Lt brachial Position Sitting Pulse 80 Pulse Source Pulse Oximeter Pulse Oximetry (%) 99 Oxygen Delivery Method Room Air Intake Visit Reasons: HTN, mood disorder Paralegal Legal Secretary Required: Yes Paralegal Legal Secretary Language: Turkish Accompanied by: Self / Same As Patient Allergies No Known Allergies Allergy (Verified 06/22/23 16:44) Medication List - Last Reconciled 06/22/23 by Bandar Martinez MD bisacodyl (Dulcolax (bisacodyl)) 10 mg (2 x 5 mg) PO BEDTIME 2 days cholecalciferol (vitamin D3) 50 mcg PO DAILY 90 days escitalopram oxalate 5 mg PO DAILY 30 days lisinopril 20 mg PO DAILY omeprazole 20 mg PO .QAMAC 30 days peg 3350-electrolytes 236-22.74-6.74 -5.86 gram (Golytely) 240 mL PO Q10M 1 day Tobacco use date assessed: 02/19/23 HPI HTN, mood disorder HPI Details Patient comes in today for his follow up visit States that he is still feeling depressed He was started on Escitalopram 5 mg QD a few months ago - states that he picked up the Rx then but has not yet started taking the Rx Is planning to start taking it now States that he feels okay otherwise He denies any headaches or dizziness Denies any chest pains, no SOB No nausea/vomiting, no abdominal pain No change in bowel habits noted Had his follow up labs done last week - to discuss his results [facility] Medical History Pure hypercholesterolemia Overweight (BMI 25.0-29.9) Thoracic myofascial strain Smoker Dermatitis Depression Benign essential hypertension Surgical History No significant past surgical history Family History Sister Breast cancer Brother Colon cancer, Onset Age: 62 Mother Heart disease Hypertension Father Diabetes Social History Housing: Apartment Alcohol intake: current Alcohol intake frequency: 3 or more drinks per day Alcohol type: beer Patient Tobacco Use Status: Current everyday Tobacco user Tobacco use type: Cigarette Cigarette Packs Per Day: 1 Cigarettes Per Day: 20 e-Cigarette/Vaping Use: Never Used service: No Current occupational exposures/hazards: No Cognitive needs: No Hearing needs: No Vision needs: No Questionnaire PHQ-9 Over the last 2 weeks, how often have you been bothered by any of the following problems? 1. Little interest or pleasure in doing things: more than half the days 2. Feeling down, depressed, or hopeless: nearly every day 3. Trouble falling or staying asleep, or sleeping too much: more than half the days 4. Feeling tired or having little energy: nearly every day 5. Poor appetite or overeating: not at all 6. Feeling bad about yourself - or that you are a failure or have let yourself or your family down: nearly every day 7. Trouble concentrating on things, such as reading the newspaper or watching television: more than half the days 8. Moving or speaking so slowly that other people could have noticed. Or the opposite - being so fidgety or restless that you have been moving around a lot more than usual: nearly every day 9. Thoughts that you would be better off or of hurting yourself in some way: more than half the days Total score: 20 Depression Screening Interpretation: Positive Depression Screening Follow-up: Existing condition and New Medication prescribed Depression Screening Done: Yes 25236 - PHQ-9 Billing: Yes Source: Developed by Drs. Herson Ortega, Alice Ritter, Jorge Luis Pedro and colleagues, with an educational martin from [employer]. Thrive Questionnaire Date Thrive assessed: 06/22/23 I am a: Patient What is your living situation today?: I have a steady place to live Within the past 12 months, did the food you bought not last and you didn't have the money to get more?: Never true Within the past 12 months, did you worry whether your food would run out before you got money to buy more?: Never true Do you have trouble paying for medicines?: No Do you have trouble getting transportation to medical appointments?: No Do you have trouble paying your heating and electricity bill?: No Do you have trouble taking care of your child, family member or friend?: No Do you have trouble with day-to-day activities such as bathing, preparing meals, shopping, managing finances, etc.?: No Are you currently unemployed and looking for a job?: No Are you interested in more education?: No Please select the resources that you would like help with: None Currently or been in a relationship where the following occur: no concerns reported THRIVE Score: 0 AUDIT C Alcohol Use Questionnaire (AUDIT-C) 1. How often do you have a drink containing alcohol?: 2-3 times a week 2. How many drinks containing alcohol do you have on a typical day when you are drinking?: 3 or 4 3. How often do you have six or more drinks on one occasion?: Weekly Total Score: 7 Score Reviewed/Action Taken: Yes (Counseled to quit or at least cut back on his drinking) CAMACHO-7 AMB Questionnaire CAMACHO-7 Date CAMACHO - 7 assessed: 06/22/23 Feeling nervous, anxious, or on edge: 3 = Nearly every day Not being able to stop or control worryin = Nearly every day Worrying too much about different things: 3 = Nearly every day Trouble relaxin = Nearly every day Being so restless that it is hard to sit still: 3 = Nearly every day Becoming easily annoyed or irritable: 3 = Nearly every day Feeling afraid as if something awful might happen: 3 = Nearly every day Total CAMACHO-7 score (0-4 normal; 5-9 mild; 10-14 moderate; 15-21 severe): 21 Source: Developed by Drs. Herson Ortega, Alice Ritter, Jorge Luis Pedro and colleagues, with an educational martin from [employer]. CAMACHO-7 Assessment Billing CAMACHO-7 Assessment Tool: CAMACHO-7 Assessment 38815 Review of Systems Const Denies difficulty sleeping, Denies fatigue, Denies fever(s) and Denies headache(s) ENT Denies dysphagia, Denies dizziness, Denies otalgia, Denies headache(s), Denies neck pain, Denies odynophagia and Denies sore throat Card Denies chest pain, Denies palpitations and Denies dyspnea Resp Denies cough and Denies dyspnea GI Denies abdominal pain, Denies constipation, Denies dysphagia, Denies diarrhea, Denies nausea, Denies odynophagia and Denies vomiting Denies dysuria, Denies nocturia and Denies urinary frequency Musc Denies back pain and Denies neck pain Skin/Breast Denies rash Neuro Denies dizziness and Denies headache(s) Psych Reports depression Endo Denies fatigue and Denies palpitations Physical exam (Primary Care) Vital Signs: Last Vital Signs Pulse 80 06/22/23 16:14 BP 144/82 H 06/22/23 16:14 Pulse Ox 99 06/22/23 16:14 Oxygen Delivery Method Room Air 06/22/23 16:14 BMI result Body Mass Index 28.7 Tobacco/Smoking Status: Tobacco use Status Tobacco use date assessed 02/19/23 06/22/23 16:15 Patient Tobacco Use Status Current everyday Tobacco 06/22/23 16:15 Tobacco use type Cigarette 06/22/23 16:15 e-Cigarette/Vaping Use Never Used 06/22/23 16:15 PHQ-9: PHQ-9 Score PHQ-9: Total score 20 06/22/23 16:49 Depression Screening Interpretation: Positive Depression Screening Follow-up: Existing condition and New Medication prescribed Thrive Assessment: Date of Thrive Assessment Date Thrive assessed 06/22/23 06/22/23 16:25 Currently or been in a relationship where the following occur: no concerns reported Const General: no acute distress and alert HENMT Ears: TM's normal bilaterally and EAC's normal Throat: Yes posterior oropharynx normal and Yes tonsils normal (no TP congestion) Neck Neck: Yes no lymphadenopathy and Yes supple Resp Auscultation: clear to auscultation bilaterally, no rales and no wheezes Cardio Rate: regular rate Rhythm: regular rhythm Heart sounds: no murmurs GI Palpation (GI): Soft to palpation and nontender Auscultation: normal bowel sounds General: Yes no CVA tenderness Back/Spine/Pelvis Back: no CVA tenderness Skin Rashes: no rashes Extrem General: Yes no clubbing, cyanosis or edema Results Reviewed Results Reviewed: Laboratory Tests 10/12/22 02/14/23 06/11/23 06:15 06:27 06:13 Sodium 139 Potassium 4.3 Creatinine 0.84 Estimated GFR > 60 Fasting Glucose 98 Hemoglobin A1c % 5.0 Calcium 9.4 D AST 17 ALT 17 Triglycerides 98 Cholesterol 218 H LDL Cholesterol, Calc 124 H HDL Cholesterol 75 Vitamin B1 12 Vitamin B12 437 25-OH Vitamin D Total 32.6 Folate TSH 0.71 06/11/23 06:13 Sodium Potassium Creatinine Estimated GFR Fasting Glucose Hemoglobin A1c % Calcium AST ALT Triglycerides Cholesterol LDL Cholesterol, Calc HDL Cholesterol Vitamin B1 Vitamin B12 25-OH Vitamin D Total Folate 9.9 TSH Assessment and Plan Assessment & Plan (1) Benign essential hypertension: Code(s): I10 - Essential (primary) hypertension Plan: Reinforced low sodium diet - goal is systolic BP of at least 120 to 130 mm or less Continue Lisinopril 20 mg QD (2) Pure hypercholesterolemia: Code(s): E78.00 - Pure hypercholesterolemia, unspecified Plan: Results of his labs done last week reviewed and discussed with patient Reinforced low cholesterol diet Will recheck his labs and fasting lipids in 4 months for follow up (3) Erectile dysfunction: Code(s): N52.9 - Male erectile dysfunction, unspecified Qualifiers: Erectile dysfunction type: unspecified Qualified Code(s): N52.9 - Male erectile dysfunction, unspecified Plan: Advised that this is most likely multifactorial, including due to his hypertension, cholesterol as well as his mood disorder Can consider starting him on a PDE5 inhibitor at any time if he wants to (like Sildenafil) - states that he will just call for the Rx when he needs them (4) Depression: Code(s): F32.9 - Major depressive disorder, single episode, unspecified Qualifiers: Depression Type: unspecified Qualified Code(s): F32.9 - Major depressive disorder, single episode, unspecified Plan: He was prescribed Escitalopram 5 mg QD previously but did not start taking the medication yet States that he is now planning to start taking the medication today (5) Alcohol use: Code(s): Z78.9 - Other specified health status Plan: Patient is again counseled on his drinking - states that he mostly drinks a 6- pack on weekends to help him relax and does NOT drink at all during the week (6) Smoker: Code(s): F17.200 - Nicotine dependence, unspecified, uncomplicated Plan: Counseled again on smoking cessation (7) Overweight (BMI 25.0-29.9): Code(s): E66.3 - Overweight Plan: Reinforced diet/exercise as tolerated/lose weight Plan Follow up in 4 months Orders: Orders Lipid Panel 4 Months E78.00 - Pure hypercholesterolemia, unspecified Comprehensive [place]. Panel Fast 4 Months E78.00 - Pure hypercholesterolemia, unspecified Coding Level of Care Code Est Pt Level 4 (87763) Diagnoses Benign essential hypertension I10 Pure hypercholesterolemia E78.00 Erectile dysfunction, unspecified erectile dysfunction type N52.9 Erectile dysfunction type: unspecified Depression, unspecified depression type F32.9 Depression Type: unspecified Alcohol use Z78.9 Smoker F17.200 Overweight (BMI 25.0-29.9) E66.3 Additional Codes CAMACHO-7 Assessment Billing - CAMACHO-7 Assessment Tool: CAMACHO-7 Assessment 74563 ([id number])
== END 2023-06-22 16:52 | disposition home or self-care (01) ==
PROVIDERS: PCP Internal Medicine; Visit Provider Internal Medicine
DX: I10 Essential (primary) hypertension (principal); E78.00 Pure hypercholesterolemia, unspecified; N52.9 Male erectile dysfunction, unspecified; F32.9 Major depressive disorder, single episode, unspecified; Z78.9 Other specified health status; F17.210 Nicotine dependence, cigarettes, uncomplicated; E66.3 Overweight
CPT/HCPCS: 96127; 99214

== ENCOUNTER 2023-09-11 07:50 | Day surgery (SDC) | payer BC, SELFPAY ==
[2023-09-10 06:43] VITALS: BMI 28.7
--- NOTE | 2023-09-10 12:29 | HO.ANESPROP2 ---
Documented by User: Edith Ott NP 09/10/23 12:29 HPI - Anesthesia Eval Consult details Narrative: 53yo M for Colonoscopy PMF Active Problems Active Problems: All Active Problems Vitamin D deficiency (Acute) Pure hypercholesterolemia (Acute) Pre-op examination (Acute) Overweight (BMI 25.0-29.9) (Acute) Erectile dysfunction (Acute) Alcohol use (Acute) Hordeolum externum left upper eyelid (Acute) Annual physical exam (Acute) Pharyngeal dysphagia (Acute) GERD (gastroesophageal reflux disease) (Acute) Family history of colon cancer (Acute) Colon cancer screening (Acute) Thoracic myofascial strain (Acute) Obesity (BMI 30-39.9) (Acute) Smoker (Acute) Dermatitis (Acute) Depression (Acute) Benign essential hypertension (Acute) HTN (hypertension) (Acute) Past Medical History Medical History (Updated 06/24/23 @ 04:33 by Bandar Martinez MD) Vitamin D deficiency Pure hypercholesterolemia Overweight (BMI 25.0-29.9) Thoracic myofascial strain Smoker Dermatitis Depression Benign essential hypertension Family History Family History Sister Breast cancer Brother Colon cancer, Onset Age: 62 Mother Heart disease Hypertension Father Diabetes Surgical History Surgical History No significant past surgical history Social History Social History Housing: Apartment Alcohol intake: current Alcohol intake frequency: 3 or more drinks per day Alcohol type: beer Patient Tobacco Use Status: Current everyday Tobacco user Tobacco use type: Cigarette Cigarette Packs Per Day: 1 Cigarettes Per Day: 20 e-Cigarette/Vaping Use: Never Used Advance Directives: No Advance Directives Information Provided: Yes service: No Current occupational exposures/hazards: No Cognitive needs: No Hearing needs: No Vision needs: No Meds Allergies Allergy/AdvReac Type Severity Reaction Status Date / Time No Known Allergies Allergy Verified 06/22/23 16:44 Exam Height,Weight and Vital Signs: Height 5 ft 7 in Weight 83.007 kg Assessment and Plan Assessment Anesthesia Assessment: Chart Reviewed Documented by User: Anthony Gamble MD 09/11/23 10:11 [facility] Past Medical History Medical History (Updated 06/24/23 @ 04:33 by Bandar Martinez MD) Vitamin D deficiency Pure hypercholesterolemia Overweight (BMI 25.0-29.9) Thoracic myofascial strain Smoker Dermatitis Depression Benign essential hypertension Family History Family History Sister Breast cancer Brother Colon cancer, Onset Age: 62 Mother Heart disease Hypertension Father Diabetes Family history of problems with anesthesia: No Surgical History Surgical History No significant past surgical history History of Problems with Anesthesia: No Social History Social History Housing: Apartment Alcohol intake: current Alcohol intake frequency: 3 or more drinks per day Alcohol type: beer Patient Tobacco Use Status: Current everyday Tobacco user Tobacco use type: Cigarette Cigarette Packs Per Day: 1 Cigarettes Per Day: 20 e-Cigarette/Vaping Use: Never Used Advance Directives: No Advance Directives Information Provided: Yes service: No Current occupational exposures/hazards: No Cognitive needs: No Hearing needs: No Vision needs: No Meds Allergies Allergy/AdvReac Type Severity Reaction Status Date / Time No Known Allergies Allergy Verified 06/22/23 16:44 Exam Airway Mallampati Class: II TM Dist: >3cm Neck ROM: Full Partial: Upper Loose/Missing/Broken Teeth: No Heart: rrr Lungs: cta Assessment and Plan Assessment Anesthesia Assessment: Anesthesia Plan Discussed Final Anesthetic Review Family History of Problems with Anesthesia: No History of Problems with Anesthesia: No NPO: Yes ASA Class: II Final Preanesthetic Review: No Changes in Pt Med Stat, Meds/Allgs Chart Reviewed, Consent Obtained/Reviewed and Anes Risks/Benef Reviewed Patient Risk: Intermediate Procedure Risk: Intermediate Anesthetic Plan Anesthetic Plan: MAC: Disposition: Standard PACU and Inp. Admit - IMC
--- NOTE | 2023-09-11 10:11 | MHC.SHP ---
Pre-Procedural Eval Section A - 24 Hr Update-Section A only Date of Service: 09/11/23 Section B - Complete if H&P > 30 days Chief Complaint: Encounter for screening for malignant neoplasm of Details of Present Illness: brother CRC Relevant Family History (Specify if Yes): Yes Relevant Social History: Tobacco Use Present Medications: see Short Stay Collaborative assessment Medical History: Significant History (Vitamin D deficiency Pure hypercholesterolemia Overweight (BMI 25.0-29.9) Thoracic myofascial strain Smoker Dermatitis Depression Benign essential hypertension) History of Previous Operations: Relevant previous surgery/procedure and date(s) Allergies: Allergies Allergy/AdvReac Type Severity Reaction Status Date / Time No Known Allergies Allergy Verified 06/22/23 16:44 Review of Systems Sugical H&P ROS: Negative: Constitution, Cardiovascular, Respiratory, Neurological, Psychiatric, Hem-Onc, Allergic/Immunologic, Gastrointestinal, Genitourinary, Musculoskeletal, Integumentary, Endocrine and Eyes/Ears/Nose/Throat Exam Surgical H&P Exam: Normal: HEENT, Normal: Heart, Normal: Lungs, Normal: Extremities, Normal: Abdomen, Normal: Skin and Normal: Neurological Plan Diagnosis/Plan: Unchanged I have reviewed the history and physical and performed a pertinent physical examination on my patient. No changes have occurred unless specified. Time Spent With Patient Time: Total time managing care of this patient today ____ minutes.
[2023-09-11 10:17] VITALS: BMI 27.4
[2023-09-11] MEDS: Lactated Ringers 1,000 ML 100 ML IVCONT (10:22)
--- NOTE | 2023-09-11 11:17 | HO.OPN-COLON ---
Colonoscopy Operative Note Operative Note Date of Service: 09/11/23 Narrative: Operative Information Procedure Description: Colonoscopy Indication: screening Anesthesia: MAC COLONOSCOPY Instrument: Olympus variable stiffness pediatric scope 190L Colonoscopy Monitoring: Vital signs and clinical assessment, continuous EKG monitoring, Pulse oximetry, Carbon Dioxide monitoring and blood pressure monitoring were done throughout the procedure. Colon withdrawal time was 11 minutes. Procedure: The patient was placed in the left lateral decubitis position and pre-procedure medications were administered. After a digital rectal examination of the ano-rectum, the video colonoscope was inserted into the rectum and advanced through the colon to the cecum/TI. The colonoscope was slowly withdrawn in a retrograde panoramic fashion and the colon mucosa was carefully examined including a retroflexed view of the rectum. Findings and interventions are described below. Procedure Difficulty: easy Findings: Terminal Ileum-normal Cecum:normal Right sided retroflexion- normal Ascending Colon: normal Transverse Colon -normal Descending Colon:normal Sigmoid Colon: normal Rectum: Retroflexion with medium sized internal hemorrhoids seen, grade I Anorectum - normal Intervention: none Colon preparation: [place] Bowel Preparation Scale Right colon; 1-2 Transverse colon: 2 Left colon; 3 (0 = Unprepared colon segment with mucosa not seen due to solid stool that cannot be cleared. 1 = Portion of mucosa of the colon segment seen, but other areas of the colon segment not well seen due to staining, residual stool and/or opaque liquid. 2 = Minor amount of residual staining, small fragments of stool and/or opaque liquid, but mucosa of colon segment seen well. 3 = Entire mucosa of colon segment seen well with no residual staining, small fragments of stool or opaque liquid) Impression and Post Procedure Diagnosis: internal hemorrhoids Plan: High fiber diet leaflet Avoid straining at stool, epsom salts and sitz bath, anusol supps or cream Repeat Colonoscopy in 5-6 years due to fair prep on right or earlier if clinically indicated Above findings were reviewed with the patient and relevant handouts were provided if indicated.
[2023-09-11 11:22] VITALS: BP 109/59; PULSE 68; RESP 17; TEMP 36.9; O2SAT 97
[2023-09-11 11:37] VITALS: BP 132/82; PULSE 58; RESP 18; TEMP 36.9; O2SAT 99
== END 2023-09-11 12:03 | disposition home or self-care (01) ==
PROVIDERS: PCP Internal Medicine; Visit Provider Internal Medicine Gastroenterology
PROC: 0DJD8ZZ Inspection of Lower Intestinal Tract, Via Natural or Artificial Opening Endoscopic (ICD-10-PCS; CPT 45378; principal; 2023-09-11 11:20)
DX: Z12.11 Encounter for screening for malignant neoplasm of colon (principal); K64.0 First degree hemorrhoids; Z80.0 Family history of malignant neoplasm of digestive organs; I10 Essential (primary) hypertension
CPT/HCPCS: 45378; J2704

== ENCOUNTER → 2023-09-11 07:50 | Outpatient (BNV) | payer BC, SELFPAY | PROVIDERS: PCP Internal Medicine; Visit Provider Internal Medicine Gastroenterology | DX: Z12.11 Encounter for screening for malignant neoplasm of colon (principal); K64.0 First degree hemorrhoids | CPT/HCPCS: 45378 ==

== ENCOUNTER 2023-09-25 15:46 | Outpatient (AMB) | payer BC, SELFPAY ==
[2023-09-25 15:48] VITALS: BP 124/79; PULSE 83; BMI 27.2
--- NOTE | 2023-09-25 15:48 | A.OFFVIS_ITS ---
Vital Signs 09/25/23 15:48 Height 5 ft 7 in Weight 174 lb BMI 27.2 BP 124/79 Blood Pressure Location Rt brachial Position Sitting Pulse 83 Intake Visit Reasons: S/P [place]: Dr stewart Intake Note: Gatito presents to in office follow up s/p colonoscopy. CC: Patient reports doing well and denies having any GI concerns today. 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 Code(s): Z80.0 - Family history of malignant neoplasm of digestive organs Plan: [place] #Jill Live This will be his first colonoscopy. He denies any bowel or upper GI problems. 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 He denies any cardiac or respiratory problems. No ID problems. His brother had CRC in his 60's. (2) Pre-op examination: Code(s): Z01.818 - Encounter for other preprocedural examination (3) Alcohol use: Code(s): Z78.9 - Other specified health status Orders: Orders Colonoscopy - GI Use Only Today Z01.818 - Encounter for other preprocedural examination, Z80.0 - Family history of malignant neoplasm of digestive organs Medications: New peg 3350-electrolytes 236-22.74-6.74 -5.86 gram (Golytely) until fecal effluent is clear; do not exceed a total volume of 2,000 mL 240 mL PO Q10M 1 day 4,000 mL 0RF Z12.11 - Encounter for screening for malignant neoplasm of colon COLONOSCOPY 09/11/23? Findings: Terminal Ileum-normal Cecum:normal Right sided retroflexion- normal Ascending Colon: normal Transverse Colon -normal Descending Colon:normal Sigmoid Colon: normal Rectum: Retroflexion with medium sized internal hemorrhoids seen, grade I Anorectum - normal Intervention: none Impression and Post Procedure Diagnosis: internal hemorrhoids Plan: High fiber diet leaflet Avoid straining at stool, epsom salts and sitz bath, anusol supps or cream Repeat Colonoscopy in 5-6 years due to fair prep on right or earlier if clinically indicated TODAY'S VISIT [place] #Javi Bonilla He is agreeable to a 5 year follow-up given his family history of colon cancer in a sibling. The procedure was well tolerated. The results were explained and the patient is agreeable to the follow-up interval as stated. The bowel pattern has returned to normal. Education was provided to tell any 1st degree relatives about their findings to be sure that they are screened by age 45. Educated that they will be put on a recall list when it is time for their repeat scope but should they move out of state or away from the hospital they will need to remember along with their primary to repeat the procedure in a timely fashion to avoid any adverse complications. He does not have trouble with hemorrhoids, in fact he really loves hot spicy foods! [facility] Medical History (Updated 09/25/23 @ 15:49 by LUIS Warren) Vitamin D deficiency Pure hypercholesterolemia Overweight (BMI 25.0-29.9) Thoracic myofascial strain Smoker Dermatitis Depression Benign essential hypertension Surgical History (Updated 09/25/23 @ 16:14 by LINDA Kearns) H/O colonoscopy Family History Sister Breast cancer Brother Colon cancer, Onset Age: 62 Mother Heart disease Hypertension Father Diabetes Social History Housing: Apartment Alcohol intake: current Alcohol intake frequency: 3 or more drinks per day Alcohol type: beer Patient Tobacco Use Status: Current everyday Tobacco user Tobacco use type: Cigarette Cigarette Packs Per Day: 1 Cigarettes Per Day: 20 e-Cigarette/Vaping Use: Never Used service: No Current occupational exposures/hazards: No Cognitive needs: No Hearing needs: No Vision needs: No Review of Systems Const Denies fatigue, Denies fever(s), Denies night sweats, Denies poor appetite and Denies weight loss ENT Reports Normal hearing present, Denies dental pain, Denies dysphagia, Denies hearing loss, Denies mouth pain, Denies odynophagia, Denies throat swelling, Denies tongue swelling and Reports other (Dentition adequate) Card Reports no additional complaints Resp Reports no additional complaints GI Details: Denies abdominal pain, Denies melena, Denies bloating, Denies hematochezia, Denies constipation, Denies GI cramping, Denies dysphagia, Denies excessive flatus, Denies early satiety, Reports heartburn, Denies diarrhea, Denies nausea, Denies odynophagia, Denies vomiting and Denies hematemesis Skin/Breast Denies pruritus, Denies lesions, Denies rash and Denies jaundice Neuro Reports Normal hearing present and Denies Abnormal speech present Endo Denies fatigue Aller/Immun Denies throat swelling and Denies tongue swelling Physical Exam Const General: cooperative, no acute distress, well developed and well groomed Nutritional Appearance: average body habitus and well nourished Orientation/consciousness: oriented to person, oriented to place and oriented to time Limitations: language barrier HEENT Head: Yes normocephalic and Yes atraumatic Eyes General: appearance normal, both eyes and all related structures Pupils: Equal, round and reactive pupils present Neck Neck: Yes normal visual inspection and Yes no lymphadenopathy Thyroid: Thyroid normal Resp Effort & Inspection: normal respiratory effort and able to speak in complete sentences Auscultation: clear to auscultation bilaterally Cardio Rate: regular rate Rhythm: regular rhythm Heart sounds: Normal, physiologic split S2 sound present Peripheral pulses: radial pulses present and posterior tibial pulses present GI Inspection: No distended and No Abdominal panniculus present Palpation (GI): Soft to palpation, nontender, no guarding, not rigid and No hepatosplenomegaly present Percussion: Yes normal to percussion Auscultation: normal bowel sounds Rectal Exam - Male: Yes deferred Skin General skin exam: no rashes or lesions noted, turgor normal, skin not dry, no jaundice, No spider nevi and no striae Rashes: no rashes Nails: normal Neuro General: oriented to person, oriented to place and oriented to time Cranial nerves: Yes Equal, round and reactive pupils present and Yes Normal hearing present Speech: No Abnormal speech present Extrem General: Yes normal to inspection, No clubbing, No cyanosis and No edema Psych Appearance: grossly normal and well kempt Mental Status: mental status grossly normal Speech and movement: Normal speech and movement present Affect: normal affect Attitude: cooperative Thought process: Normal thought process present and not confabulating Thought content: Normal thought content present Insight: Fair insight present (Psych) Judgement: Fair judgement present (Psych) Assessment & Plan Assessment & Plan (1) Family history of colon cancer: Comment: His brother had CRC but he does not know at what age, his sister also recently had CRC at age 68 had throat cancer but he does not speak to these family member much. Code(s): Z80.0 - Family history of malignant neoplasm of digestive organs Category: Medical Plan [place] #Chad, Live He is agreeable to a 5 year follow-up given his family history of colon cancer in a sibling. The procedure was well tolerated. The results were explained and the patient is agreeable to the follow-up interval as stated. The bowel pattern has returned to normal. Education was provided to tell any 1st degree relatives about their findings to be sure that they are screened by age 45. Educated that they will be put on a recall list when it is time for their repeat scope but should they move out of state or away from the hospital they will need to remember along with their primary to repeat the procedure in a timely fashion to avoid any adverse complications. He does not have trouble with hemorrhoids, in fact he really loves hot spicy foods! Coding Level of Care Code Est Pt Level 3 (23808) Diagnoses Family history of colon cancer Z80.0
== END 2023-09-25 16:21 | disposition home or self-care (01) ==
PROVIDERS: PCP Internal Medicine; Visit Provider Nurse Practitioner
DX: Z80.0 Family history of malignant neoplasm of digestive organs (principal)
CPT/HCPCS: 99213

== ENCOUNTER → 2023-09-25 15:46 | Outpatient (BNVA) | payer BC, SELFPAY | PROVIDERS: PCP Internal Medicine; Visit Provider Nurse Practitioner ==

== ENCOUNTER 2023-10-22 14:43 | Outpatient (AMB) | payer BC, SELFPAY ==
[2023-10-22 14:49] VITALS: BP 136/92; PULSE 75; O2SAT 97; BMI 28.0
--- NOTE | 2023-10-22 14:49 | MHC.PC.OV ---
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 Allergies No Known Allergies Allergy (Verified 10/22/23 15:36) Medication List - Last Reconciled 10/22/23 by Bandar Martinez MD cholecalciferol (vitamin D3) 50 mcg PO DAILY 90 days lisinopril 20 mg PO DAILY omeprazole 20 mg PO .QAMAC 30 days Tobacco use date assessed: 10/22/23 Dental Screening Dental Screen Date: 10/22/23 HPI 4 month f/u HPI Details Patient comes in today for his follow up visit States that he feels okay He denies any headaches or dizziness Denies any chest pains, no SOB No nausea/vomiting, no abdominal pain No change in bowel habits noted Needs his Lisinopril Rx refilled He was not able to get his follow up labs done prior to his appointment today He had his colonoscopy done last month - procedure was normal and he was recommended to get repeat colonoscopy in 5 years due to his family history [facility] Medical History Vitamin D deficiency Pure hypercholesterolemia Overweight (BMI 25.0-29.9) Thoracic myofascial strain Smoker Dermatitis Depression Benign essential hypertension Surgical History H/O colonoscopy Family History Sister Breast cancer Brother Colon cancer, Onset Age: 62 Mother Heart disease Hypertension Father Diabetes Social History Housing: Apartment Alcohol intake: current Alcohol intake frequency: 3 or more drinks per day Alcohol type: beer Patient Tobacco Use Status: Current everyday Tobacco user Tobacco use type: Cigarette Cigarette Packs Per Day: 1 Cigarettes Per Day: 20 e-Cigarette/Vaping Use: Never Used service: No Current occupational exposures/hazards: No Cognitive needs: No Hearing needs: No Vision needs: No Questionnaire PHQ-9 Over the last 2 weeks, how often have you been bothered by any of the following problems? 1. Little interest or pleasure in doing things: more than half the days 2. Feeling down, depressed, or hopeless: nearly every day 3. Trouble falling or staying asleep, or sleeping too much: more than half the days 4. Feeling tired or having little energy: nearly every day 5. Poor appetite or overeating: not at all 6. Feeling bad about yourself - or that you are a failure or have let yourself or your family down: nearly every day 7. Trouble concentrating on things, such as reading the newspaper or watching television: more than half the days 8. Moving or speaking so slowly that other people could have noticed. Or the opposite - being so fidgety or restless that you have been moving around a lot more than usual: nearly every day 9. Thoughts that you would be better off or of hurting yourself in some way: more than half the days Total score: 20 Depression Screening Interpretation: Positive Depression Screening Follow-up: Existing condition and New Medication prescribed Depression Screening Done: Yes 64127 - PHQ-9 Billing: Yes Source: Developed by Drs. Herson Ortega, Alice Ritter, Jorge Luis Pedro and colleagues, with an educational martin from [employer]. Thrive Questionnaire Date Thrive assessed: 06/22/23 I am a: Patient What is your living situation today?: I have a steady place to live Within the past 12 months, did the food you bought not last and you didn't have the money to get more?: Never true Within the past 12 months, did you worry whether your food would run out before you got money to buy more?: Never true Do you have trouble paying for medicines?: No Do you have trouble getting transportation to medical appointments?: No Do you have trouble paying your heating and electricity bill?: No Do you have trouble taking care of your child, family member or friend?: No Do you have trouble with day-to-day activities such as bathing, preparing meals, shopping, managing finances, etc.?: No Are you currently unemployed and looking for a job?: No Are you interested in more education?: No Please select the resources that you would like help with: None Currently or been in a relationship where the following occur: no concerns reported THRIVE Score: 0 AUDIT C Alcohol Use Questionnaire (AUDIT-C) 1. How often do you have a drink containing alcohol?: 2-3 times a week 2. How many drinks containing alcohol do you have on a typical day when you are drinking?: 3 or 4 3. How often do you have six or more drinks on one occasion?: Weekly Total Score: 7 Score Reviewed/Action Taken: Yes (Counseled to quit or at least cut back on his drinking) CAMACHO-7 AMB Questionnaire CAMACHO-7 Date CAMACHO - 7 assessed: 06/22/23 Source: Developed by Drs. Herson Ortega, Alice Ritter, Jorge Luis Pedro and colleagues, with an educational martin from [employer]. Review of Systems Const Denies chills, Denies difficulty sleeping, Denies fatigue, Denies fever(s) and Denies headache(s) ENT Denies dysphagia, Denies dizziness, Denies otalgia, Denies headache(s), Denies neck pain, Denies odynophagia and Denies sore throat Card Denies chest pain, Denies palpitations and Denies dyspnea Resp Denies cough and Denies dyspnea GI Denies abdominal pain, Denies constipation, Denies dysphagia, Denies diarrhea, Denies nausea, Denies odynophagia and Denies vomiting Denies dysuria, Denies nocturia and Denies urinary frequency Musc Denies back pain and Denies neck pain Skin/Breast Denies rash Neuro Denies dizziness and Denies headache(s) Psych Reports depression Endo Denies fatigue and Denies palpitations Physical exam (Primary Care) Vital Signs: Last Vital Signs Pulse 75 10/22/23 14:49 BP 136/92 H 10/22/23 14:49 Pulse Ox 97 10/22/23 14:49 Oxygen Delivery Method Room Air 10/22/23 14:49 BMI result Body Mass Index 28.0 Tobacco/Smoking Status: Tobacco use Status Tobacco use date assessed 10/22/23 10/22/23 14:50 Patient Tobacco Use Status Current everyday Tobacco 10/22/23 14:50 Tobacco use type Cigarette 10/22/23 14:50 e-Cigarette/Vaping Use Never Used 10/22/23 14:50 PHQ-9: PHQ-9 Score PHQ-9: Total score 20 10/22/23 15:19 Depression Screening Interpretation: Positive Depression Screening Follow-up: Existing condition and New Medication prescribed Thrive Assessment: Date of Thrive Assessment Date Thrive assessed 06/22/23 10/22/23 14:50 Currently or been in a relationship where the following occur: no concerns reported Const General: no acute distress and alert HENMT Ears: TM's normal bilaterally and EAC's normal Throat: Yes posterior oropharynx normal and Yes tonsils normal (no TP congestion) Neck Neck: Yes no lymphadenopathy and Yes supple Thyroid: Thyroid normal Resp Auscultation: clear to auscultation bilaterally, no rales and no wheezes Cardio Rate: regular rate Rhythm: regular rhythm Heart sounds: no murmurs GI Palpation (GI): Soft to palpation and nontender Auscultation: normal bowel sounds General: Yes no CVA tenderness Back/Spine/Pelvis Back: no CVA tenderness Skin Rashes: no rashes Extrem General: Yes no clubbing, cyanosis or edema Assessment and Plan Assessment & Plan (1) Benign essential hypertension: Code(s): I10 - Essential (primary) hypertension Plan: Reinforced low sodium diet - goal is systolic BP of at least 120 to 130 mm or less Continue Lisinopril 20 mg QD - Rx refilled (2) Pure hypercholesterolemia: Code(s): E78.00 - Pure hypercholesterolemia, unspecified Plan: He was not able to get his follow up labs done prior to his appointment today Reinforced low cholesterol diet Will recheck his labs and fasting lipids in 4 months for follow up (3) Erectile dysfunction: Code(s): N52.9 - Male erectile dysfunction, unspecified Qualifiers: Erectile dysfunction type: unspecified Qualified Code(s): N52.9 - Male erectile dysfunction, unspecified Plan: Advised again that this is most likely multifactorial, including due to his hypertension, cholesterol as well as his mood disorder Can consider starting him on a PDE5 inhibitor at any time if he wants to (like Sildenafil) - states that he will just call for the Rx when he needs them (4) Depression: Code(s): F32.9 - Major depressive disorder, single episode, unspecified Qualifiers: Depression Type: unspecified Qualified Code(s): F32.9 - Major depressive disorder, single episode, unspecified Plan: He was prescribed Escitalopram 5 mg QD previously but ended up not starting on the medication States that he is currently doing better and may not really need any Rx at this time (5) Alcohol use: Code(s): Z78.9 - Other specified health status Plan: Patient is again counseled on his drinking - states that he mostly drinks a 6-pack on weekends to help him relax and does NOT drink at all during the week (6) Smoker: Code(s): F17.200 - Nicotine dependence, unspecified, uncomplicated Plan: Counseled again on smoking cessation (7) Overweight (BMI 25.0-29.9): Code(s): E66.3 - Overweight Plan: Reinforced diet/exercise as tolerated/lose weight Plan To return in 4 months for his annual physical examination Orders: Orders Comprehensive [place]. Panel Fast 4 Months E78.00 - Pure hypercholesterolemia, unspecified, Z00.00 - Encounter for general adult medical examination without abnormal findings TSH reflex Free T4 4 Months E78.00 - Pure hypercholesterolemia, unspecified, Z00.00 - Encounter for general adult medical examination without abnormal findings Vitamin D 25-OH Total 4 Months E55.9 - Vitamin D deficiency, unspecified, Z00.00 - Encounter for general adult medical examination without abnormal findings Prostate Specific Antigen 4 Months N40.0 - Benign prostatic hyperplasia without lower urinary tract symptoms, Z00.00 - Encounter for general adult medical examination without abnormal findings Complete Blood Count Auto Diff 4 Months D64.9 - Anemia, unspecified, Z00.00 - Encounter for general adult medical examination without abnormal findings Lipid Panel 4 Months E78.00 - Pure hypercholesterolemia, unspecified, Z00.00 - Encounter for general adult medical examination without abnormal findings UA CC w/rflx Micro + Cult 4 Months R30.0 - Dysuria, Z00.00 - Encounter for general adult medical examination without abnormal findings Magnesium 4 Months E83.42 - Hypomagnesemia Medications: Refilled lisinopril Patient needs an appointment for refills 20 mg PO DAILY 30 tabs 2RF I10 - Essential (primary) hypertension Coding Level of Care Code Est Pt Level 4 (56616) Diagnoses Benign essential hypertension I10 Pure hypercholesterolemia E78.00 Erectile dysfunction, unspecified erectile dysfunction type N52.9 Erectile dysfunction type: unspecified Depression, unspecified depression type F32.9 Depression Type: unspecified Alcohol use Z78.9 Smoker F17.200 Overweight (BMI 25.0-29.9) E66.3
[2023-10-22 15:37] VITALS: BP 132/80
== END 2023-10-22 15:42 | disposition home or self-care (01) ==
PROVIDERS: PCP Internal Medicine; Visit Provider Internal Medicine
DX: I10 Essential (primary) hypertension (principal); E78.00 Pure hypercholesterolemia, unspecified; N52.9 Male erectile dysfunction, unspecified; F17.210 Nicotine dependence, cigarettes, uncomplicated
CPT/HCPCS: 99214